=== PATIENT | female | born 1970 | race African-American/Black ===

== ENCOUNTER 2016-09-08 17:20 | Emergency (ER) | payer OTHER ==
--- NOTE | 2016-09-08 18:04 | PDOC ---
History of Present Illness - General History Source: Patient, Old Records Exam Limitations: No Limitations - History of Present Illness Initial Comments: 09/08/16 19:26 The patient is a 46 year old female, with a significant past medical history of asthma, HTN, hyperlipidemia and diabetes, who presents to the emergency department with hypoglycemia since approximately 3PM this afternoon. The patient reports that she took her normal dose of Humalog at 3PM this afternoon and then ate 2 slices of bologna. The patient states that shortly after, she felt her blood sugar drop. She was at her nieces house at the time so her niece called an ambulance to bring her to an ED for evaluation. The patient denies fever, chills, chest pain, SOB, nausea, vomiting or diarrhea. Allergies: None reported. Past Surgical History: Herniated Disc, Laminectomy. Social History: Non smoker. Denies alcohol or drug use. <Zoe Oakley - Last Filed: 09/08/16 19:26> <Isaac Roland - Last Filed: 09/08/16 20:26> - General Chief Complaint: Blood Sugar Problem Stated Complaint: hypoglycemia Time Seen by Provider: 09/08/16 18:01 Past History <Zoe Oakley - Last Filed: 09/08/16 19:26> - Past Medical History Asthma: Yes Diabetes: Yes (iddm) HTN: Yes Hypercholesterolemia: Yes Psychiatric Problems: Yes (depression/anxiety/imsomnia) - Surgical History Neurologic Surgery: Yes (herniated disc/laminectomy) - Family Disease History Family Disease History: Diabetes: Father - Immunization History Immunization Up to Date: Yes - Psycho/Social/Smoking Cessation Hx Anxiety: Yes Suicidal Ideation: No Smoking History: Unknown if ever smoked Have you smoked in the past 12 months: No Hx Alcohol Use: No Drug/Substance Use Hx: No Substance Use Type: None <Isaac Roland - Last Filed: 09/08/16 20:26> - Past Medical History Allergies/Adverse Reactions: Allergies Allergy/AdvReac Type Severity Reaction Status Date / Time No Known Allergies Allergy Verified 07/06/16 09:49 Home Medications: Ambulatory Orders Buspirone HCl [Buspar -] 10 mg PO BID 07/06/16 Cholecalciferol (Vitamin D3) [Vitamin D3] 50,000 unit PO WEEKLY 07/06/16 Cyanocobalamin [Vitamin B12 -] 1,000 mcg PO DAILY 07/06/16 Cyclobenzaprine HCl [Flexeril -] 5 mg PO Q8H PRN 07/06/16 Diphenhydramine HCl [Diphen] 25 mg PO Q6H PRN 07/06/16 Ibuprofen 800 mg PO QID #30 tablet 07/06/16 Insulin Lispro [Humalog Kwikpen U-200] 15 unit SQ TID 07/06/16 Metformin HCl 500 mg PO 1800 07/06/16 Metformin HCl [Metformin HCl ER] 1,000 mg PO BIDAC 07/06/16 Montelukast Na [Singulair -] 10 mg PO HS 07/06/16 Omeprazole 20 mg PO DAILY 07/06/16 Propranolol HCl 10 mg PO Q12H 07/06/16 Ramipril 10 mg PO BID 07/06/16 Sertraline HCl [Zoloft -] 100 mg PO DAILY 07/06/16 Sitagliptin Phosphate [Januvia] 100 mg PO DAILY 07/06/16 Trazodone HCl 100 mg PO HS 07/06/16 Trazodone HCl [Desyrel -] 150 mg PO HS 07/06/16 Review of Systems - Review of Systems Able to Perform ROS?: Yes Comments:: 09/08/16 19:19 CONSTITUTIONAL: +Hypoglycemia. No fever, no chills, no fatigue EYES: No visual changes ENT: No ear pain, no sore throat CARDIOVASCULAR: No chest pain, no palpitations RESPIRATORY: No cough, no SOB GI: No abdominal pain, no nausea, no vomiting, no constipation, no diarrhea GENITOURINARY: No dysuria, no frequency, no hematuria MUSKULOSKELETAL: No back pain, no joint pain, no myalgias SKIN: No rash NEURO: No headache <[place]quossocZoe bray - Last Filed: 09/08/16 19:26> *Physical Exam - Vital Signs Last Vital Signs Temp Pulse Resp BP Pulse Ox 97.9 F 105 H 18 119/69 99 09/08/16 17:54 09/08/16 17:54 09/08/16 17:54 09/08/16 17:54 09/08/16 17:54 - Physical Exam Comments: 09/08/16 18:24 CONSTITUTIONAL: Morbidly obese. Well-appearing; well-nourished; in no apparent distress. HEAD: Normocephalic; atraumatic. EYES: PERRL; EOM intact. ENMT: External appears normal; normal oropharynx. NECK: Supple; non-tender; no cervical lymphadenopathy. CARD: Normal S1, S2; no murmurs, rubs, or gallops. RESP: Normal chest excursion with respiration; breath sounds clear and equal bilaterally; no wheezes, rhonchi, or rales. ABD: Soft, non-distended; non-tender; no palpable organomegaly, no palpable hernias. EXT: Normal ROM in all four extremities; non-tender to palpation; distal pulses intact. SKIN: Warm, dry, no rash. NEURO: No focal neurological deficiencies. <Zoe Oakley - Last Filed: 09/08/16 19:26> - Vital Signs Last Vital Signs Temp Pulse Resp BP Pulse Ox 97.9 F 105 H 18 119/69 99 09/08/16 17:54 09/08/16 17:54 09/08/16 17:54 09/08/16 17:54 09/08/16 17:54 <Isaac Roland - Last Filed: 09/08/16 20:26> ED Treatment Course - LABORATORY CBC & Chemistry Diagram: 09/08/16 18:00 09/08/16 18:19 - ADDITIONAL ORDERS Additional order review: 09/08/16 18:00 RBC 4.51 MCV 83.3 MCHC 30.9 L RDW 15.3 D MPV 9.4 Neutrophils % 53.7 Lymphocytes % 36.5 Monocytes % 7.8 Eosinophils % 0.9 Basophils % 1.1 <Zoe Oakley - Last Filed: 09/08/16 19:26> - LABORATORY CBC & Chemistry Diagram: 09/08/16 18:00 09/08/16 18:19 <Isaac Roland - Last Filed: 09/08/16 20:26> Medical Decision Making - Medical Decision Making 09/08/16 20:23 Patient is a morbidly obese 46-year-old female with history of diabetes, on metformin and insolent who presented by EMS after developing. Of hypoglycemia shortly after taking her regular Humalog without eating a proper meal prior to the injection. In route, patient had received dextrose and the was in her normal baseline mental state on evaluation in the ER. CBC reveals minimal leukocytosis with a normal differential. Serial BGM's reveal blood glucose between 70 and 120. Serial neurological exams reveal no focal deficits. EKG on arrival revealed mild sinus tachycardia of 103, with poor R-wave progression in the precordial leads but no evidence of ischemia. I believe hypoglycemic episode is related to regular dose of insolent but in adequate intake of carbohydrates prior to that. Patient ate a meal in the ER and drank several containers of orange juice. Patient is going to be discharged to the care of her . <Isaac Roland - Last Filed: 09/08/16 20:26> *DC/Admit/Observation/Transfer - Attestations Scribe Attestion: 09/08/16 18:23 Documentation prepared by Zoe Oakley, acting as medical director/head team physician for Isaac Roland MD. <Zoe Oakley - Last Filed: 09/08/16 19:26> - Attestations Physician Attestion: 09/08/16 20:23 The documentation was prepared by the scribe under my direct supervision. I have reviewed the documentation which correctly represents the findings, medical decision-making and critical action taken by me. <Isaac Roland - Last Filed: 09/08/16 20:26> Diagnosis at time of Disposition: Hypoglycemia - Discharge Dispostion Disposition: HOME Condition at time of disposition: Stable - Referrals Referrals: STAFF,NOT ON [Primary Care Provider] - pmd, one week [Other] - Patient Instructions Printed Discharge Instructions: DI for Hyperglycemia -- Adult
[2016-09-08 18:05] VITALS: BP 119/69; PULSE 105; TEMP 97.9; BMI 50.1
[2016-09-08 18:08] LABS: BASOPHIL 1.1 % (0-2.0); EOSINOPHIL 0.9 % (0-4.5); MCH 25.7 pg (25.7-33.7); MCHC 30.9 g/dl (32.0-36.0); MEAN CELL VOLUME 83.3 fl (80-96); MEAN PLT VOLUME 9.4 fl (7.5-11.1); NEUTROPHILS 53.7 % (42.8-82.8); PLATELET COUNT 374 K/MM3 (134-434); RDW 15.3 % (11.6-15.6); WHITE BLOOD COUNT 13.3 K/mm3 (4.0-10.0)
[2016-09-08 19:28] LABS: ALBUMIN 2.9 g/dl (3.4-5.0); CALCIUM 8.2 mg/dL (8.5-10.1); CREATININE 1.1 mg/dL (0.55-1.02); TOT PROT 7.3 g/dl (6.4-8.2)
[2016-09-08 19:33] LABS: BILIRUBIN,TOTAL 0.2 mg/dL (0.2-1.0)
[2016-09-08] MEDS ORDERED: HEMOQUE TEST 1 EACH EACH ONE (20:00)
--- NOTE | 2016-09-09 12:38 | EKG ---
Test Reason : Blood Pressure : / mmHG Vent. Rate : 103 BPM Atrial Rate : 103 BPM P-R Int : 146 ms QRS Dur : 088 ms QT Int : 354 ms P-R-T Axes : 057 030 077 degrees QTc Int : 463 ms SINUS TACHYCARDIA POSSIBLE LEFT ATRIAL ENLARGEMENT CANNOT RULE OUT ANTERIOR INFARCT , AGE UNDETERMINED ABNORMAL ECG WHEN COMPARED WITH ECG OF 06-JUL-2016 10:35, NO SIGNIFICANT CHANGE WAS FOUND Confirmed by GEOVANI ISLAS MD ([id number]) on 09/09/2016 12:38:13 PM Referred By: Confirmed By:GEOVANI ISLAS MD
== END 2016-09-08 20:57 | disposition home or self-care (01) ==
LOC: JER 17:20
DX: E11.649 Type 2 diabetes mellitus with hypoglycemia without coma (principal); Z79.4 Long term (current) use of insulin; Z79.84 Long term (current) use of oral hypoglycemic drugs; I10 Essential (primary) hypertension; J45.909 Unspecified asthma, uncomplicated; E78.00 Pure hypercholesterolemia, unspecified; E78.5 Hyperlipidemia, unspecified
CPT/HCPCS: 36415; 80053; 85025; 93005; 93010; 99281-25

== ENCOUNTER 2016-10-15 00:19 | Emergency (ER) | payer OTHER ==
[2016-10-15 00:27] VITALS: BMI 50.3
--- NOTE | 2016-10-15 00:38 | PDOC ---
History of Present Illness - General Chief Complaint: Blood Sugar Problem Stated Complaint: HYPOGLYCEMIA Time Seen by Provider: 10/15/16 00:27 - History of Present Illness Initial Comments: 10/15/16 00:37 CHIEF COMPLAINT: hypoglycemia HISTORY OF PRESENT ILLNESS: 46 yo F with significant PMH of asthma, HTN, morbid obesity, hyperlipidemia and insulin-dependent DM BIBEMS for hypoglycemia. Patient states she was at home and "felt the low sugar" and her called the ambulance. On EMS arrival, patient's blood sugar was 29. Patient was given D10 on the ambulance and on arrival to ED her POC glucose was 178. Patient states she wasn't eating much today, and was "just nibbling all day , no meals" but took her regular dose of Humalog. No recent travel or sick contacts. PAST MEDICAL HISTORY: Denies past medical history FAMILY HISTORY: Denies SOCIAL HISTORY: Denies tobacco, alcohol, illicit drug use. SURGICAL HISTORY: Denies ALLERGIES: No known drug allergies REVIEW OF SYSTEMS General/Constitutional: "I felt weak and dizzy at home." Denies fever or chills. HEENT: Denies change in vision. Denies ear pain or discharge. Denies sore throat. Cardiovascular: Denies chest pain or shortness of breath. Respiratory: Denies cough, wheezing, or hemoptysis. Gastrointestinal: Denies nausea, vomiting, diarrhea or constipation. Genitourinary: Denies dysuria, frequency, or change in urination. Musculoskeletal: Denies joint or muscle swelling or pain. Denies neck or back pain. Skin and breasts: Denies rash or easy bruising. Neurologic: Denies headache, vertigo, loss of consciousness, or loss of sensation. PHYSICAL EXAM General Appearance: Obese, appropriately dressed. No apparent distress. HEENT: EOMI, PERRLA, normal ENT inspection, normal voice, TMs normal, pharynx normal. No conjunctival pallor. No photophobia, scleral icterus. Neck: Supple. Trachea midline. No tenderness, rigidity, carotid bruit, stridor , lymphadenopathy, or thyromegaly. Respiratory/Chest: Lungs CTAB. Cardiovascular: RRR. S1, S2. Vascular Pulses: Dorsalis-Pedis (R): 2+, Dorsalis-Pedis (L): 2+ Gastrointestinal/Abdominal: Normal bowel sounds. Abdomen soft, non-distended. No tenderness or rebound tenderness. Protuberant abdomen, no palpable organomegaly. Lymphatic: No adenopathy, tenderness. Musculoskeletal/Extremities: Normal inspection. FROM of all extremities, normal capillary refill. No tenderness to extremities, pedal edema, swelling, erythema or deformity. Integumentary: Appropriate color, dry, warm. No cyanosis, erythema, jaundice or rash Neurologic: certified registered nurse practitioner II-XII intact. Fully oriented, alert. Appropriate mood/affect. Motor strength 5/5. No appreciable EOM palsy, facial droop or sensory deficit. A&Ox3, follow commands, respond appropriately CN2-12: conjugate gaze, pupil round, equal and reactive to light. Visual field full to confrontation. EOMI without nystagmus, pursuit is smooth without saccade. Facial sensation and muscle activation intact bilaterally. Hearing intact bilaterally. Palate elevate symmetrically. Shoulder shrug and neck turn full strength. Tongue protrude midline. Motor: UE and LE strength 5/5 to upper extremities and R lower extremity. Patient has chronic pain/weakness to L leg "ever since my back surgery". Muscle tone and bulk normal. Cerebellar: Rapid-alternating movement with regular rhythm without bradykinesia. 10/15/16 01:34 Past History - Past Medical History Allergies/Adverse Reactions: Allergies Allergy/AdvReac Type Severity Reaction Status Date / Time No Known Allergies Allergy Verified 10/15/16 00:52 Home Medications: Ambulatory Orders Buspirone HCl [Buspar -] 10 mg PO BID 07/06/16 Cholecalciferol (Vitamin D3) [Vitamin D3] 50,000 unit PO WEEKLY 07/06/16 Cyanocobalamin [Vitamin B12 -] 1,000 mcg PO DAILY 07/06/16 Cyclobenzaprine HCl [Flexeril -] 5 mg PO Q8H PRN 07/06/16 Diphenhydramine HCl [Diphen] 25 mg PO Q6H PRN 07/06/16 Ibuprofen 800 mg PO QID #30 tablet 07/06/16 Insulin Lispro [Humalog Kwikpen U-200] 15 unit SQ TID 07/06/16 Metformin HCl 500 mg PO 1800 07/06/16 Metformin HCl [Metformin HCl ER] 1,000 mg PO BIDAC 07/06/16 Montelukast Na [Singulair -] 10 mg PO HS 07/06/16 Omeprazole 20 mg PO DAILY 07/06/16 Propranolol HCl 10 mg PO Q12H 07/06/16 Ramipril 10 mg PO BID 07/06/16 Sertraline HCl [Zoloft -] 100 mg PO DAILY 07/06/16 Sitagliptin Phosphate [Januvia] 100 mg PO DAILY 07/06/16 Trazodone HCl [Desyrel -] 150 mg PO HS 07/06/16 Asthma: Yes Diabetes: Yes (iddm) HTN: Yes Hypercholesterolemia: Yes Psychiatric Problems: Yes (depression/anxiety/imsomnia) - Surgical History Neurologic Surgery: Yes (herniated disc/laminectomy) - Family Disease History Family Disease History: Diabetes: Father - Immunization History Immunization Up to Date: Yes - Psycho/Social/Smoking Cessation Hx Anxiety: Yes Suicidal Ideation: No Smoking History: Never smoked Have you smoked in the past 12 months: No Hx Alcohol Use: No Drug/Substance Use Hx: No Substance Use Type: None *Physical Exam - Vital Signs Last Vital Signs Temp Pulse Resp BP Pulse Ox 113 H 18 115/58 97 10/15/16 00:24 10/15/16 00:24 10/15/16 00:24 10/15/16 00:24 ED Treatment Course - LABORATORY CBC & Chemistry Diagram: 10/15/16 00:26 10/15/16 00:36 Medical Decision Making - Medical Decision Making 10/15/16 01:12 46-year-old female with history of diabetes, on metformin and insolent who presented by EMS after developing hypoglycemia s/p taking regular dose of Humalog without eating any meals today. Patient received D10 en route to ED via EMS. On arrival to ED patient's BGM was 178. EKG on arrival with sinus tachy to 113, otherwise unchanged from prior EKG on 09/08/16. 10/15/16 01:49 Repeat BGM 1 hr after arrival was 148 Labs: CBC - mildly elevated WBC with a normal differential. Awaiting CMP results for serum glucose. 10/15/16 01:56 Labs: Chemistry: Random serum glucose 136, Creatinine mildly elevated to 1.1 but this is patient's baseline. Serial neurological exams reveal no focal deficits. Hypoglycemia most likely secondary to minimal intake of food and regular dose of insulin. At time of discharge patient is eating a sandwich and drinking orange juice. Advised patient that she MUST follow up with Dr. Reyes and Dr. Acuna for continued management of her diabetes. Advised patient that she must remember to eat meals regularly to avoid episodes of hypoglycemia. Patient verbalized understanding and agrees to plan. *DC/Admit/Observation/Transfer Diagnosis at time of Disposition: Hypoglycemia associated with type 2 diabetes mellitus - Discharge Dispostion Admit: No - Referrals Referrals: Ginny Hill [Primary Care Provider] - Blaise Acuna MD [Staff Physician] - - Patient Instructions Printed Discharge Instructions: DI for Hypoglycemia Additional Instructions: Please follow up with Dr. Reyes and Dr. Acuna for continued management of your diabetes. You MUST remember to eat meals regularly to avoid episodes of hypoglycemia. Please let Dr. Acuna know that you were brought to the ER for hypoglycemia. If you experience dizziness, weakness, nausea, vomiting, difficulty breathing, chest pain, shortness of breath, or any new or worsening symptoms, please return to the ER immediately.
[2016-10-15 01:06] LABS: EOSINOPHIL 0.8 % (0-4.5); MCH 26.6 pg (25.7-33.7); MCHC 31.6 g/dl (32.0-36.0); MEAN CELL VOLUME 84.5 fl (80-96); MEAN PLT VOLUME 9.4 fl (7.5-11.1); NEUTROPHILS 57.5 % (42.8-82.8); PLATELET COUNT 333 K/MM3 (134-434); RDW 16.7 % (11.6-15.6); WHITE BLOOD COUNT 13.7 K/mm3 (4.0-10.0)
[2016-10-15 01:50] LABS: ALBUMIN 2.9 g/dl (3.4-5.0); BILIRUBIN,TOTAL 0.1 mg/dL (0.2-1.0); CALCIUM 8.5 mg/dL (8.5-10.1); CREATININE 1.1 mg/dL (0.55-1.02); TOT PROT 7.2 g/dl (6.4-8.2)
[2016-10-15 02:39] VITALS: BP 118/61; PULSE 98
--- NOTE | 2016-10-15 13:33 | EKG ---
Test Reason : Blood Pressure : / mmHG Vent. Rate : 112 BPM Atrial Rate : 112 BPM P-R Int : 132 ms QRS Dur : 094 ms QT Int : 352 ms P-R-T Axes : 058 032 073 degrees QTc Int : 480 ms SINUS TACHYCARDIA POSSIBLE LEFT ATRIAL ENLARGEMENT CANNOT RULE OUT ANTERIOR INFARCT (CITED ON OR BEFORE 08-SEP-2016) ABNORMAL ECG WHEN COMPARED WITH ECG OF 08-SEP-2016 17:34, NO SIGNIFICANT CHANGE WAS FOUND Confirmed by ISREAL BLACK MD ([id number]) on 10/15/2016 1:33:35 PM Referred By: Confirmed By:ISREAL BLACK MD
== END 2016-10-15 02:51 | disposition home or self-care (01) ==
LOC: JER 00:19
DX: E11.649 Type 2 diabetes mellitus with hypoglycemia without coma (principal); Z79.4 Long term (current) use of insulin; Z79.84 Long term (current) use of oral hypoglycemic drugs; I10 Essential (primary) hypertension; E78.00 Pure hypercholesterolemia, unspecified; F41.8 Other specified anxiety disorders; G47.00 Insomnia, unspecified
CPT/HCPCS: 36415; 80053; 85025; 93005; 93010; 99282-25

== ENCOUNTER 2016-11-16 14:07 | Emergency (ER) | payer OTHER ==
[2016-11-16] MEDS ORDERED: OXYCODONE/APAP 5/325MG COMBO TABLET ONE (14:11)
[2016-11-16] MEDS ORDERED: OXYCODONE/APAP 5/325MG COMBO TABLET PO ONE (14:17)
--- NOTE | 2016-11-16 14:17 | PDOC ---
History of Present Illness - General Stated Complaint: BACK PAIN Time Seen by Provider: 11/16/16 14:14 - History of Present Illness Initial Comments: CHIEF COMPLAINT: 46 y/o morbidly obese, afebrile female with PMH IDDM, HTN, asthma, insomnia, laminectomy lumbar spine c/o low back pain s/p fall today. HISTORY OF PRESENT ILLNESS: The patient was in Dr. Acuna's office and when she tried to sit on a very small wheeled chair it rolled backwards and she fell down onto her butt. She states her back has been in a lot of pain ever since. She denies head trauma, LOC, neck pain, dizziness, f/c, n/v/d, CP, SOB, abd pain , numbness/tingling in LEs, bowel/bladder incontinence. Vital signs on arrival are within normal limits. REVIEW OF SYSTEMS: GENERAL/CONSTITUTIONAL: No fever/chills. No weakness. No weight change. HEAD, EYES, EARS, NOSE AND THROAT: No change in vision. No ear pain or discharge. No sore throat. CARDIOVASCULAR: No chest pain or shortness of breath. RESPIRATORY: No cough, wheezing, or hemoptysis. GASTROINTESTINAL: No abd pain, nausea, vomiting, diarrhea, constipation. GENITOURINARY: No dysuria, frequency, or change in urination. MUSCULOSKELETAL: No joint or muscle swelling or pain. No neck pain. + low back pain. SKIN: No rash or easy bruising. NEUROLOGIC: No headache, vertigo, loss of consciousness, or loss of sensation. PHYSICAL EXAM: GENERAL: The patient is awake, alert, and fully oriented, in no acute distress. She is morbidly obese. HEAD: Normal with no signs of trauma. ENT: Pupils equal, round and reactive to light, extraocular movements intact, sclera anicteric, conjunctiva clear. Neck supple. BACK: Old, well healed vertical incision down midline lower lumbar spine that is TTP. Some TTP of left lumbar paravertebral muscles. EXTREMITIES: Normal range of motion, no edema. NEUROLOGICAL: Normal speech. CN II-XII grossly intact. No saddle anesthesia. PSYCH: Normal mood, normal affect. SKIN: Warm, dry, normal turgor, no rashes or lesions noted. Past History - Past Medical History Allergies/Adverse Reactions: Allergies Allergy/AdvReac Type Severity Reaction Status Date / Time No Known Allergies Allergy Verified 11/16/16 14:22 Home Medications: Ambulatory Orders Buspirone HCl [Buspar -] 10 mg PO BID 07/06/16 Insulin Lispro [Humalog Kwikpen U-200] 5 unit SQ BID 07/06/16 Metformin HCl 1,500 mg PO 1800 07/06/16 Metformin HCl [Metformin HCl ER] 1,000 mg PO AM 07/06/16 Ramipril 10 mg PO DAILY 07/06/16 Sertraline HCl [Zoloft -] 100 mg PO DAILY 07/06/16 Sitagliptin Phosphate [Januvia] 100 mg PO DAILY 07/06/16 Trazodone HCl [Desyrel -] 150 mg PO HS 07/06/16 Aspirin [ASA -] 81 mg PO DAILY 11/16/16 Cyclobenzaprine HCl [Flexeril 10 mg] 10 mg PO BID PRN #10 tablet 11/16/16 Losartan Potassium 0 mg PO DAILY 11/16/16 Asthma: Yes Diabetes: Yes (iddm) HTN: Yes Hypercholesterolemia: Yes Psychiatric Problems: Yes (depression/anxiety/imsomnia) - Surgical History Neurologic Surgery: Yes (herniated disc/laminectomy) - Family Disease History Family Disease History: Diabetes: Father - Immunization History Immunization Up to Date: Yes - Psycho/Social/Smoking Cessation Hx Anxiety: Yes Suicidal Ideation: No Smoking History: Never smoked Have you smoked in the past 12 months: No Hx Alcohol Use: No Drug/Substance Use Hx: No Substance Use Type: None Medical Decision Making - Medical Decision Making A/P: 46 y/o morbidly obese female with LBP today s/p fall from a chair. Plan is as follows: 1. Percocet PO 2. Xray lumbar spine Xray lumbar spine IMPRESSION: No acute abnormalities Percocet didnt help. Will give PO flexeril. The patient take daily oxycodone twice a day. Will discharge to home with rx for flexeril to take along with oxy. Suggested she not drive as the flexeril can cause drowsiness. Instructed her to apply heat to the affected area and f/ u with her PCP if no improvement in symptoms. The patient verbalizes understanding of all instructions, has no further questions and is awaiting discharge. *DC/Admit/Observation/Transfer Diagnosis at time of Disposition: Fall Qualifiers: Encounter type: initial encounter Qualified Code(s): W19.XXXA - Unspecified fall, initial encounter Low back pain Qualifiers: Chronicity: acute Back pain laterality: midline Sciatica presence: without sciatica Qualified Code(s): M54.5 - Low back pain - Discharge Dispostion Disposition: HOME Condition at time of disposition: Good - Referrals Referrals: STAFF,NOT ON [Primary Care Provider] - - Patient Instructions Printed Discharge Instructions: DI for Low Back Pain Additional Instructions: Discharge Instructions: -A prescription has been sent to your pharmacy for Flexeril. Do not drive while taking as it can cause drowsiness. -Apply heating pad to the affected area -Return to the ER with any worsening or concerning symptoms.
[2016-11-16 14:23] VITALS: TEMP 98; BMI 50.1
[2016-11-16] MEDS ORDERED: CYCLOBENZAPRINE HCL 10 MG TABLET (FP) ONE (15:32)
--- NOTE | 2016-11-16 15:33 | PDOC ---
*Physical Exam - Vital Signs Last Vital Signs Temp Pulse Resp BP Pulse Ox 98.0 F 94 H 20 154/83 98 11/16/16 14:20 11/16/16 14:20 11/16/16 14:20 11/16/16 14:20 11/16/16 14:20 ED Treatment Course - Medications Given in the ED: ED Medications Discontinued Medications Generic Name Dose Route Start Last Admin Trade Name Freq PRN Reason Stop Dose Admin Oxycodone/Acetaminophen 2 combo 11/16/16 14:17 11/16/16 14:22 Percocet 5/325 - PO 11/16/16 14:18 2 combo ONCE ONE Administration Medical Decision Making - Medical Decision Making 11/16/16 15:31 Patient seen and evaluated with the nurse practitioner. I agree with the overall evaluation, assessment, and management with the following summary of visit: 46-year-old female with history of laminectomy presents with low back pain after missing her wheel chair and landing on her bottom. Neurologically intact, full range of motion with full strength of bilateral/ knees/ankle/toes Agree with management as outlined. LS-spine imaging shows no acute fracture *DC/Admit/Observation/Transfer Diagnosis at time of Disposition: Fall Qualifiers: Encounter type: initial encounter Qualified Code(s): W19.XXXA - Unspecified fall, initial encounter Low back pain Qualifiers: Chronicity: acute Back pain laterality: midline Sciatica presence: without sciatica Qualified Code(s): M54.5 - Low back pain
[2016-11-16] MEDS ORDERED: CYCLOBENZAPRINE HCL 10 MG TABLET (FP) PO ONE (15:43)
[2016-11-16 15:46] VITALS: BP 147/88; PULSE 72
== END 2016-11-16 15:46 | disposition home or self-care (01) ==
LOC: JER 14:07
DX: M54.5 Low back pain (principal); W05.0XXA Fall from non-moving wheelchair, initial encounter; Y92.531 Health care provider office as the place of occurrence of the external cause; Y93.9 Activity, unspecified; E11.9 Type 2 diabetes mellitus without complications; I10 Essential (primary) hypertension; J45.909 Unspecified asthma, uncomplicated; Z79.82 Long term (current) use of aspirin; Z79.84 Long term (current) use of oral hypoglycemic drugs
CPT/HCPCS: 72100-TC; 99282-25

== ENCOUNTER 2020-07-28 11:59 | Emergency (ER) | payer OTHER ==
[2020-07-28 12:04] VITALS: BMI 31.9
[2020-07-28] MEDS ORDERED: ACETAMINOPHEN 325 MG TABLET (FP) PO ONE (14:42)
[2020-07-28] MEDS ORDERED: ACETAMINOPHEN 325 MG TABLET (FP) ONE (14:50)
[2020-07-28] MEDS ORDERED: NAPROXEN 500 MG TABLET PO ONE (14:57)
[2020-07-28] MEDS ORDERED: NAPROXEN 500 MG TABLET ONE (15:14)
[2020-07-28 15:22] VITALS: BP 153/95; PULSE 82; TEMP 98
== END 2020-07-28 15:20 | disposition home or self-care (01) ==
LOC: JER 11:59
DX: M25.512 Pain in left shoulder (principal)
CPT/HCPCS: 93005; 93010; 99284-25

== ENCOUNTER 2023-03-12 17:38 | Inpatient (IN) | payer OTHER ==
[2023-03-12 18:09] VITALS: BMI 31.3
[2023-03-12] MEDS ORDERED: ASPIRIN 81 MG CHEWABLE TABLETS PO ONE ×2 (18:41→18:42)
[2023-03-12] MEDS ORDERED: ASPIRIN 81 MG CHEWABLE TABLETS ONE (18:53)
[2023-03-12 19:31] LABS: BASO % 1.2 % (0-2.0); EOS % 0.6 % (0-4.5); HEMATOCRIT 42.7 % (32.4-45.2); HEMOGLOBIN 13.4 GM/dL (10.7-15.3); LYMPH % 32.4 % (8-40); MCH 27.1 pg (25.7-33.7); MCHC 31.3 g/dl (32.0-36.0); MEAN CELL VOLUME 86.6 fl (80-96); MEAN PLT VOLUME 8.5 fl (7.5-11.1); MONO % 5.8 % (3.8-10.2); PLATELET COUNT 360 10^3/uL (134-434); RBC 4.93 M/mm3 (3.60-5.2); RDW 17.2 % (11.6-15.6); WHITE BLOOD COUNT 9.2 K/mm3 (4.0-10.0)
[2023-03-12 19:41] LABS: INR 1.1 (0.83-1.09); PROTHROMBIN TIME (PATIENT) 12.7 SEC (9.7-13.0)
[2023-03-12 19:48] LABS: CHLORIDE 106 mmol/L (98-107); SODIUM 136 mmol/L (136-145)
[2023-03-12 19:50] LABS: CALCIUM 9.6 mg/dL (8.5-10.1); CO2 25 mmol/L (21-32); GLUCOSE,RANDOM 88 mg/dL (74-106)
[2023-03-12 19:51] LABS: ALBUMIN 3.1 g/dl (3.4-5.0); BLOOD UREA NITROGEN 18.1 mg/dL (7-18)
[2023-03-12 19:53] LABS: SGOT/AST 39 U/L (15-37); SGPT/ALT 12 U/L (13-61)
[2023-03-12 19:54] LABS: CREATININE 1.1 mg/dL (0.55-1.3)
[2023-03-12 19:55] LABS: ALK PHOS 129 U/L (45-117); BILIRUBIN,TOTAL 0.3 mg/dL (0.2-1); TOT PROT 8.7 g/dl (6.4-8.2)
[2023-03-12 20:01] LABS: ANION GAP 5 MMOL/L (8-16); POTASSIUM 6.8 mmol/L (3.5-5.1)
[2023-03-12] MEDS ORDERED: CLOPIDOGREL BISULFATE 300 MG TABLET PO ONE (20:24)
[2023-03-12] MEDS ORDERED: ENOXAPARIN NA (PORCINE) 40 MG/0.4 ML DISP.SYRIN SQ ONE (20:24)
[2023-03-12] MEDS ORDERED: ATORVASTATIN CA 80 MG TABLET (FP) PO ONE (20:24)
[2023-03-12] MEDS ORDERED: ENOXAPARIN NA (PORCINE) 100 MG/1 ML DISP.SYRIN SQ ONE (20:39)
[2023-03-12] MEDS ORDERED: CLOPIDOGREL BISULFATE 300 MG TABLET ONE (20:39)
[2023-03-12] MEDS ORDERED: ACETAMINOPHEN 1000 MG/100 ML BAG IVPB ONE (20:59)
[2023-03-12] MEDS ORDERED: ACETAMINOPHEN INJECTION 100 ML IVPB ONE (21:01)
[2023-03-12] MEDS ORDERED: oxyCODONE HCL 5 MG TABLET PO ONE (21:42)
[2023-03-12 21:45] LABS: POTASSIUM 4.7 mmol/L (3.5-5.1)
[2023-03-12] MEDS ORDERED: oxyCODONE HCL 5 MG TABLET ONE (21:45)
[2023-03-12 21:47] LABS: CALCIUM 8.9 mg/dL (8.5-10.1)
[2023-03-12] MEDS ORDERED: ALBUTEROL SO4 0.083% IH SOL 2.5 MG/3 ML VIAL.NEB. NEB PRN (22:27)
[2023-03-12] MEDS ORDERED: traZODone HCL 100 MG TABLET (FP) PO ONE (23:32)
[2023-03-13] MEDS ORDERED: traZODone HCL 100 MG TABLET (FP) ONE ×2 (00:11→00:17)
[2023-03-13] MEDS ORDERED: traZODone HCL 50 MG TABLET (FP) ONE ×2 (00:12→00:17)
[2023-03-13] MEDS ORDERED: traZODone HCL 100 MG TABLET (FP) PO ONE (00:18)
[2023-03-13] MEDS ORDERED: traZODone HCL 150 MG TABLET PO ONE (00:18)
[2023-03-13] MEDS ORDERED: oxyCODONE HCL 5 MG TABLET PO ONE (05:26)
[2023-03-13] MEDS ORDERED: DOCUSATE SODIUM 100 MG CAPSULE (FP) PO PRN (05:32)
[2023-03-13 06:58] LABS: BASO % 0.7 % (0-2.0); EOS % 0.8 % (0-4.5); HEMATOCRIT 36.7 % (32.4-45.2); HEMOGLOBIN 11.8 GM/dL (10.7-15.3); LYMPH % 51.3 % (8-40); MCH 27.4 pg (25.7-33.7); MCHC 32.1 g/dl (32.0-36.0); MEAN CELL VOLUME 85.4 fl (80-96); MEAN PLT VOLUME 8.4 fl (7.5-11.1); MONO % 6.9 % (3.8-10.2); NEUT % 40.3 % (42.8-82.8); PLATELET COUNT 341 10^3/uL (134-434); RDW 17.2 % (11.6-15.6)
[2023-03-13 07:12] LABS: ALBUMIN 2.6 g/dl (3.4-5.0); BLOOD UREA NITROGEN 16.4 mg/dL (7-18); CALCIUM 8.7 mg/dL (8.5-10.1); MAGNESIUM 2.1 mg/dL (1.8-2.4)
[2023-03-13 07:16] LABS: BILIRUBIN,TOTAL 0.2 mg/dL (0.2-1)
[2023-03-13 07:17] LABS: TOT PROT 7.1 g/dl (6.4-8.2)
[2023-03-13] MEDS ORDERED: ENOXAPARIN NA (PORCINE) 100 MG/1 ML DISP.SYRIN SQ SCH (09:00)
[2023-03-13] MEDS ORDERED: LOSARTAN POTASSIUM 50 MG TABLET ONE (09:10)
[2023-03-13] MEDS ORDERED: FAMOTIDINE 20 MG TABLET ONE (09:10)
[2023-03-13] MEDS ORDERED: CLOPIDOGREL BISULFATE 75 MG TABLET (FP) ONE (09:11)
[2023-03-13] MEDS ORDERED: amLODIPine BESYLATE 10 MG TABLET (FP) ONE (09:11)
[2023-03-13] MEDS ORDERED: ASPIRIN 81 MG CHEWABLE TABLETS ONE (09:11)
[2023-03-13] MEDS ORDERED: ENOXAPARIN NA (PORCINE) 100 MG/1 ML DISP.SYRIN SQ ONE (09:12)
[2023-03-13] MEDS ORDERED: PANTOPRAZOLE 40 MG TABLET PO SCH ×2 (10:00)
[2023-03-13] MEDS ORDERED: amLODIPine BESYLATE 10 MG TABLET (FP) PO SCH (10:00)
[2023-03-13] MEDS ORDERED: FAMOTIDINE 20 MG TABLET PO SCH (10:00)
[2023-03-13] MEDS ORDERED: LOSARTAN POTASSIUM 50 MG TABLET PO SCH (10:00)
[2023-03-13] MEDS ORDERED: ASPIRIN 81 MG CHEWABLE TABLETS PO SCH (10:00)
[2023-03-13] MEDS ORDERED: CLOPIDOGREL BISULFATE 75 MG TABLET (FP) PO SCH (10:00)
[2023-03-13] MEDS ORDERED: ACETAMINOPHEN 1000 MG/100 ML BAG IVPB PRN (10:54)
[2023-03-13] MEDS ORDERED: oxyCODONE HCL 5 MG TABLET PO PRN (10:55)
[2023-03-13] MEDS ORDERED: INSULIN SLIDING SCALE (NOVOLOG) 1 VIAL SQ SCH (11:00)
[2023-03-13] MEDS ORDERED: NITROGLYCERIN 2% OINTMENT - 1GM PACKET TD SCH ×2 (14:00→18:00)
[2023-03-13] MEDS ORDERED: ACETAMINOPHEN INJECTION 100 ML IVPB ONE (14:47)
[2023-03-13] MEDS ORDERED: oxyCODONE HCL 5 MG TABLET ONE (14:52)
[2023-03-13] MEDS ORDERED: NITROGLYCERIN 2% OINTMENT - 1GM PACKET TD ONE (14:59)
[2023-03-13 16:19] VITALS: BP 132/64; PULSE 90; RESP 18
[2023-03-13 16:52] VITALS: TEMP 98
[2023-03-13] MEDS ORDERED: ATORVASTATIN CA 80 MG TABLET (FP) PO SCH (22:00)
[2023-03-13] MEDS ORDERED: METOPROLOL TARTRATE 25 MG TABLET (FP) PO SCH (22:00)
== END 2023-03-13 16:53 | disposition short-term general hospital (02) | DRG 190 ==
LOC: JER 17:38 → JERBED 20:46
PROVIDERS: ADMIT Internal Medicine; ATTEND Family Medicine
DX: I21.4 Non-ST elevation (NSTEMI) myocardial infarction (principal); E11.9 Type 2 diabetes mellitus without complications; I10 Essential (primary) hypertension; E78.5 Hyperlipidemia, unspecified; J45.909 Unspecified asthma, uncomplicated; G82.22 Paraplegia, incomplete; K21.9 Gastro-esophageal reflux disease without esophagitis; F32.A Depression, unspecified; F41.9 Anxiety disorder, unspecified; Z79.84 Long term (current) use of oral hypoglycemic drugs
CPT/HCPCS: 36415; 71045-TC-FY; 80048; 80053; 80061; 82962; 83735; 84443; 84484; 85025; 85610; 87635; 93005; 93010; 99285-25

== ENCOUNTER 2023-09-01 10:32 | Emergency (ER) | payer OTHER ==
[2023-09-01 10:55] VITALS: BMI 31.3
[2023-09-01] MEDS ORDERED: ACETAMINOPHEN 1000 MG/100 ML BAG IVPB ONE (11:20)
[2023-09-01] MEDS ORDERED: ACETAMINOPHEN INJECTION 100 ML IVPB ONE (11:32)
[2023-09-01 12:36] LABS: BASO % 1.3 % (0-2.0); EOS % 0.2 % (0-4.5); HEMATOCRIT 37.1 % (32.4-45.2); HEMOGLOBIN 11.8 GM/dL (10.7-15.3); LYMPH % 21.2 % (8-40); MCH 28.3 pg (25.7-33.7); MCHC 31.9 g/dl (32.0-36.0); MEAN CELL VOLUME 88.7 fl (80-96); MEAN PLT VOLUME 8.2 fl (7.5-11.1); MONO % 5.8 % (3.8-10.2); NEUT % 71.5 % (42.8-82.8); PLATELET COUNT 366 10^3/uL (134-434); RBC 4.18 M/mm3 (3.60-5.2); RDW 15.8 % (11.6-15.6); WHITE BLOOD COUNT 8.9 K/mm3 (4.0-10.0)
[2023-09-01 12:51] LABS: POTASSIUM 4.6 mmol/L (3.5-5.1)
[2023-09-01 12:55] LABS: ALBUMIN 3.5 g/dl (3.4-5.0); BLOOD UREA NITROGEN 21.2 mg/dL (7-18); CALCIUM 9.9 mg/dL (8.5-10.1)
[2023-09-01 12:57] LABS: CREATININE 1.2 mg/dL (0.55-1.3)
[2023-09-01 12:59] LABS: BILIRUBIN,TOTAL 0.3 mg/dL (0.2-1); TOT PROT 8.7 g/dl (6.4-8.2)
[2023-09-01 15:40] VITALS: BP 133/78; PULSE 76; RESP 19; TEMP 97.9
== END 2023-09-01 15:41 | disposition home or self-care (01) ==
LOC: JER 10:32
PROC: 3E033NZ Introduction of Analgesics, Hypnotics, Sedatives into Peripheral Vein, Percutaneous Approach (ICD-10-PCS; principal; 2023-09-01)
DX: R07.2 Precordial pain (principal); I21.4 Non-ST elevation (NSTEMI) myocardial infarction; I10 Essential (primary) hypertension; E11.9 Type 2 diabetes mellitus without complications; Z20.822 Contact with and (suspected) exposure to COVID-19
CPT/HCPCS: 0241U-QW; 36415; 71045-TC-FY; 80053; 84484; 85025; 99284-25